=== PATIENT | male | born 1955 | race Caucasian/White ===

== ENCOUNTER → 2018-02-27 08:00 | Day surgery (SDC) | payer BC ==
[~2018-02-27 08:00] MED LIST: Adenosine* 3 MG/ML VIAL ONE; Heparin 2 UNITS/ML IVPREMIX* 3,000 ML IV ONE; Heparin(*) 1000 UNIT/ML 10 ML VIAL CATH LAB IV ONE; Iohexol 350 (CONTRAST) 200 ML MDV IV ONE; Lidocaine 1% INJ* 10 MG/ML 30 ML SDV ONE; Midazolam* 1 MG/ML 10 ML VIAL (10 MG) ONE; NS 0.9% 1000 ML* 1,000 ML IV SCH; VERAPAMIL 2.5 MG/ML 2 ML VIAL ** 5 mg/2 ml ONE; fentaNYL* 50 MCG/ML 2 ML VIAL (100 MCG VIAL) ONE; nitroGLYCERIN DRIP* 25,000 MCG/250 ML BTL ONE
[2018-02-27 12:27] VITALS: BP 102/63
--- NOTE | 2018-02-27 19:26 | CATH ---
CC: Dr. Ba; Dr. Kuhn; Rl Parada MD, [facility] * CATH REPORT: DATE OF PROCEDURE: 02/27/18 - [facility] CATH PRIMARY CARE PHYSICIAN: Dr. Ba. REVIEW ANALYST: Dr. Kuhn. CARDIAC SURGEON: Rl Parada MD, [facility]. PROCEDURES: Right radial artery access, bilateral selective coronary cineangiography, left heart catheterization, FFR, circumflex. HISTORY: A 62-year-old male with moderately severe aortic stenosis, anticipating aortic valve replacement. He was referred for coronary angiography presurgery. PROCEDURE ACCESS: Right radial artery sheath 6F slender. MEDICATIONS: 1. Subcu lidocaine. 2. IV Versed. 3. IV fentanyl. 4. Heparin 3000 units. 5. Nitroglycerin 300 mcg. 6. Verapamil 3 mg IA. 7. Heparin 2000 units IV. DIAGNOSTIC CATHETERS: 5F TIG4 and 5F R4. FFR was measured in the circumflex using the 5F TIG4 with IC adenosine bolus injection. After left coronary diagnostic angiography, a moderate stenosis in the circumflex just beyond the large ramus was noted, this was evaluated with FFR after 100 mcg of IC nitroglycerin. Using 100 mcg and 75 mcg of adenosine respectively for [address] [facility] pressure wire X, FFR results were 0.88, 0.86 respectively across the proximal circumflex. HEMODYNAMICS: Initial AO 103/66, LV when the TIG prolapsed across the aortic valve 94/4-8, with approximately 24 mm [id number] aortic valve gradient on pullback. Recent echo also revealed low mean gradient of 19, raising the question of low gradient aortic stenosis. ANGIOGRAPHY: Left main: The left main is large, with some calcification, has a distal eccentric inferior 20% stenosis. LAD: The LAD has moderate calcification, has fairly extensive diffuse nonobstructive plaquing, it is large. It supplies 2 relatively small diagonals , the LAD ends past the apex. Circumflex: The circumflex is large, dominant, supplies a large ramus after which the circumflex has a 50% discrete and short stenosis which was evaluated with FFR. The circumflex then supplies a small bifurcated marginal, and ends with a moderate posterolateral and a large circumflex PDA. The circumflex has no distal significant stenosis, but does have scattered luminal irregularity consistent with nonobstructive plaque. RCA: The RCA is small, not dominant, supplies only RV branches, has no stenosis. CONCLUSION: 1. Fairly diffuse nonobstructive atherosclerosis with intermediate proximal circumflex stenosis, nonischemic by FFR evaluation. 2. Low-gradient aortic stenosis. 3. Successful right radial artery access. [id number]/[facility] #: [id number] [facility] HOSPITALAdrianne
== END | disposition home or self-care (01) ==
LOC: CHICATH 08:00
PROVIDERS: ATTEND Internal Medicine Cardiovascular Disease
DX: I25.10 Atherosclerotic heart disease of native coronary artery without angina pectoris (principal); I08.0 Rheumatic disorders of both mitral and aortic valves; E78.5 Hyperlipidemia, unspecified; R06.00 Dyspnea, unspecified
CPT/HCPCS: 93458; 99156; 99157; C1769; J0153; J1644; J2250; J3010